=== PATIENT | female | born 1965 | race African-American/Black ===

== ENCOUNTER 2017-07-18 10:04 | Emergency (ER) | payer OTHER ==
[~2017-07-18] VITALS: Ht 165.1 cm; Wt 60.0 kg
[~2017-07-18 10:04] MED LIST: GLUCTAB PO; LOVA10TA PO
[2017-07-18 10:05] VITALS: BP 148/79; PULSE 83; RESP 18; TEMP 98.7; O2SAT 100
[2017-07-18] MEDS ORDERED: SODIUM CHLOR 0.9% 1000 ML INJ 1,000 ML IV SCH (10:26)
[2017-07-18] MEDS ORDERED: MORPHINE SULFATE 4 MG/ML INJ IV PUSH ONE (10:30)
[2017-07-18] MEDS ORDERED: ONDANSETRON HCL 4 MG/2 ML VIAL IVP ONE (10:30)
[2017-07-18] MEDS ORDERED: SODIUM CHLORIDE 0.9% FLUSH 10 ML FLUSH IV FLUSH PRN (10:30)
--- NOTE | 2017-07-18 10:32 | PD ---
HPI Chief Complaint: Abdominal Pain Time Seen by Provider: 10:21 Travel History International Travel<30 days: No Contact w/Intl Traveler<30days: No Traveled to known affect area: No History of Present Illness HPI Patient is a 52-year-old female who presents to emergency room with complaints of abdominal pain. Patient reports that she has been having lower abdominal pain for the past 2 days. Reports that she has been feeling nauseous and has had diarrhea with her symptoms. Reports that she has noticed streaks of bright red blood with her bowel movements. Patient denies any sick contacts, denies any recent travels or trips. Patient denies any fevers or chills. Patient reports only history of tubal ligation for past surgical history. Patient reports that she is type II diabetic but currently is not taking any medications. Patient also reports that she has been menopausal for the past year and has not had a period. Patient denies any dysuria, urinary urgency or frequency. PFSH Past Medical History Diabetes: Yes Patient Takes Glucophage: No (takes nothing) Tetanus Vaccination: < 5 Years ?: Not LMP: 07/16/17 Menopausal: Yes Tubal Ligation: Yes Past Surgical History Gynecologic Surgery: Yes (tubal ligation) Social History Alcohol Use: No Tobacco Use: No Substance Use: No Allergies-Medications (Allergen,Severity, Reaction): Coded Allergies: No Known Allergies (Unverified Adverse Reaction, Unknown, 07/18/17) Reported Meds & Prescriptions Reported Meds & Active Scripts Active No Active Prescriptions or Reported Medications Review of Systems General / Constitutional: Positive: Chills, No: Fever Eyes: No: Visual changes HENT: No: Headaches Cardiovascular: No: Chest Pain or Discomfort Respiratory: No: Shortness of Breath Gastrointestinal: Positive: Nausea, Diarrhea, Abdominal Pain, No: Vomiting, Constipation Genitourinary: No: Urgency, Frequency, Dysuria, Pelvic Pain, Flank Pain, Discharge, Vaginal Bleeding Musculoskeletal: No: Pain Skin: No Rash Neurologic: No: Weakness Psychiatric: No: Depression Endocrine: No: Polydipsia Hematologic/Lymphatic: No: Easy Bruising Physical Exam Narrative GENERAL: moderate distress SKIN: Focused skin assessment warm/dry. HEAD: Atraumatic. Normocephalic. EYES: Pupils equal and round. No scleral icterus. No injection or drainage. ENT: No nasal bleeding or discharge. Mucous membranes pink and moist. NECK: Trachea midline. No JVD. CARDIOVASCULAR: Regular rate and rhythm. No murmur appreciated. RESPIRATORY: No accessory muscle use. Clear to auscultation. Breath sounds equal bilaterally. GASTROINTESTINAL: Abdomen soft, increased tenderness no lower abdomen, nondistended. Hepatic and splenic margins not palpable. MUSCULOSKELETAL: No obvious deformities. No clubbing. No cyanosis. No edema. NEUROLOGICAL: Awake and alert. No obvious cranial nerve deficits. Motor grossly within normal limits. Normal speech. PSYCHIATRIC: Appropriate mood and affect; insight and judgment normal. Data Data Last Documented VS Vital Signs Date Time Temp Pulse Resp B/P (MAP) Pulse Ox O2 Delivery O2 Flow Rate FiO2 07/18/17 12:04 69 18 138/71 (93) 99 Room Air 07/18/17 10:05 98.7 Orders Orders Complete Blood Count With Diff (07/18/17 10:26) Comprehensive Metabolic Panel (07/18/17 10:26) Prothrombin Time / Inr (Pt) (07/18/17 10:26) Act Partial Throm Time (Ptt) (07/18/17 10:26) Urinalysis - C+S If Indicated (07/18/17 10:26) Ct Abd/Pel W Iv Contrast(Rout) (07/18/17 10:26) Iv Access Insert/Monitor (07/18/17 10:26) Ecg Monitoring (07/18/17 10:26) Oximetry (07/18/17 10:26) NPO (07/18/17 10:26) Morphine Inj (Morphine Inj) (07/18/17 10:30) Ondansetron Inj (Zofran Inj) (07/18/17 10:30) Sodium Chlor 0.9% 1000 Ml Inj (Ns 1000 M (07/18/17 10:26) Sodium Chloride 0.9% Flush (Ns Flush) (07/18/17 10:30) Ed Urine Pregnancytest Poc (07/18/17 10:26) Oral Contrast - Adult (07/18/17 11:41) Diatrizoate Liq ( Gastroview Liq) (07/18/17 12:06) Iohexol 350 Inj (Omnipaque 350 Inj) (07/18/17 13:22) Labs Laboratory Tests Test 07/18/17 10:30 07/18/17 10:40 Urine Color YELLOW Urine Turbidity HAZY Urine pH 6.5 Urine Specific [place] 1.023 Urine Protein TRACE mg/dL Urine Glucose (UA) NEG mg/dL Urine Ketones NEG mg/dL Urine Occult Blood TRACE Urine Nitrite NEG Urine Bilirubin NEG Urine Urobilinogen LESS THAN 2.0 MG/DL Urine Leukocyte Esterase NEG Urine RBC 4 /hpf Urine WBC 1 /hpf Urine Squamous Epithelial Cells 1 /hpf Urine Bacteria FEW /hpf Urine Mucus FEW /lpf Microscopic Urinalysis Comment CULT NOT INDICATED White Blood Count 7.0 TH/MM3 Red Blood Count 4.37 MIL/MM3 Hemoglobin 12.5 GM/DL Hematocrit 37.5 % Mean Corpuscular Volume 85.7 FL Mean Corpuscular Hemoglobin 28.5 PG Mean Corpuscular Hemoglobin Concent 33.3 % Red Cell Distribution Width 14.3 % Platelet Count 289 TH/MM3 Mean Platelet Volume 7.7 FL Neutrophils (%) (Auto) 54.5 % Lymphocytes (%) (Auto) 35.5 % Monocytes (%) (Auto) 8.3 % Eosinophils (%) (Auto) 1.3 % Basophils (%) (Auto) 0.4 % Neutrophils # (Auto) 3.8 TH/MM3 Lymphocytes # (Auto) 2.5 TH/MM3 Monocytes # (Auto) 0.6 TH/MM3 Eosinophils # (Auto) 0.1 TH/MM3 Basophils # (Auto) 0.0 TH/MM3 CBC Comment DIFF FINAL Differential Comment Prothrombin Time 11.2 SEC Prothromb Time International Ratio 1.0 RATIO Activated Partial Thromboplast Time 25.8 SEC Blood Urea Nitrogen 10 MG/DL Creatinine 0.80 MG/DL Random Glucose 111 MG/DL Total Protein 8.7 GM/DL Albumin 4.1 GM/DL Calcium Level 9.5 MG/DL Alkaline Phosphatase 65 U/L Aspartate Amino Transf (AST/SGOT) 26 U/L Alanine Aminotransferase (ALT/SGPT) 26 U/L Total Bilirubin 0.3 MG/DL Sodium Level 139 MEQ/L Potassium Level 3.5 MEQ/L Chloride Level 104 MEQ/L Carbon Dioxide Level 28.3 MEQ/L Anion Gap 7 MEQ/L Estimat Glomerular Filtration Rate 92 ML/MIN MDM Medical Decision Making Medical Screen Exam Complete: Yes Emergency Medical Condition: Yes Medical Record Reviewed: Yes Interpretation(s) Vital Signs Date Time Temp Pulse Resp B/P (MAP) Pulse Ox O2 Delivery O2 Flow Rate FiO2 07/18/17 10:19 18 07/18/17 10:05 98.7 83 18 148/79 (102) 100 Room Air Differential Diagnosis Gastritis, gastroenteritis, diverticulitis, electrolyte abnormality Narrative Course Patient is a 52-year-old female who presents to emergency room with complaints of abdominal pain which has been ongoing for the past 2 days. During the course of the patients emergency department visit, the patients history, examination, and differential diagnosis were reviewed with the patient. The patient was placed on a cardiac specialist with oximetry and frequent blood pressure monitoring. The patient had 20 gauge IV access obtained and blood work sent for analysis. The patient was initially provided IV morphine for pain relief, IVF and antiemetics The patients laboratory studies were reviewed and remarkable for WBC 7.0, hemoglobin 12.5, hematocrit 37.5, platelets 289, sodium 139, potassium 3.5, chloride 104, carbon dioxide 28.3, BUN 10, creatinine 0.80, glucose 111, LFTs: WNL; UA remarkable for few mucous, few bacteria, 4 red blood cells, 1 white blood cells, negative leuk esterase, negative ketones, negative nitrites Radiology studies were reviewed and remarkable for: CONCLUSION of CT of abdomen and pelvis with IV and oral contrast 1. Multiple small sided low-attenuation lesions in the liver which are too small to characterize and are nonspecific. These may represent small cysts or cavernous hemangiomas. 2. Unremarkable bowel gas pattern with no inflammatory change or obstruction. 3. Small renal cysts. Patient reports that she is feeling much better at this time. I reviewed all labs and all studies with patient in detail as well as all incidental findings. She will follow-up with her primary care doctor as well as her sales coach and will return to the emergency room as needed. Abdomen is soft, nontender, nondistended, no peritoneal signs at discharge. Patient thankful for care Diagnosis Primary Impression: Abdominal pain Additional Impressions: Lesion of liver Renal cyst Patient Instructions: General Instructions Additional Instructions: Please provide patient with a copy of their lab work and studies at discharge* * Please follow up with your primary care doctor in 2-3 days Return to the ER if symptoms worsen or progress Return to the ER as needed Please bring a copy of your studies to your doctor's office for follow up on all incidental findings Please follow up with your sales coach Scripts No Active Prescriptions or Reported Meds Disposition: 01 DISCHARGE HOME Condition: Stable Marian Portillo DO Jul 18, 2017 10:32
[2017-07-18 10:45] VITALS: RESP 20; O2SAT 99
[2017-07-18 11:01] VITALS: BP 126/69; PULSE 79; RESP 18; O2SAT 100
[2017-07-18 11:03] LABS: AUTOMATED NEUTROPHIL # 3.8 TH/MM3 (1.8-7.7); BASOPHIL % 0.4 % (0.0-2.0); EOSINOPHIL # 0.1 TH/MM3 (0-0.4); EOSINOPHIL % 1.3 % (0.0-4.0); HEMATOCRIT 37.5 % (35.0-46.0); HEMO FLAGS DIFF FINAL; LYMPH % 35.5 % (9.0-44.0); LYMPHOCYTE # 2.5 TH/MM3 (1.0-4.8); MEAN CELL VOLUME 85.7 FL (80.0-100.0); MEAN CORPUSCULAR HEMOGLOBIN 28.5 PG (27.0-34.0); MEAN CORPUSCULAR HGB CONC 33.3 % (32.0-36.0); MONO % 8.3 % (0.0-8.0); NEUT % 54.5 % (16.0-70.0); PLATELET COUNT 289 TH/MM3 (150-450); RED BLOOD COUNT 4.37 MIL/MM3 (4.00-5.30); RED CELL DISTRIBUTION WIDTH 14.3 % (11.6-17.2)
[2017-07-18 11:13] LABS: APTT (PATIENT) 25.8 SEC (24.3-30.1); PROTHROMBIN TIME - PATIENT 11.2 SEC (9.8-11.6)
[2017-07-18 11:14] LABS: BACTERIA, URINE FEW /hpf; BLOOD, URINE TRACE (NEG); COMMENT (UR) CULT NOT INDICATED; CULTURE IF INDICATED CULT NOT INDICATED; GLUCOSE,URINE NEG (NEG); KETONE, URINE NEG (NEG); MUCUS URINE FEW /lpf (OCC); NITRITE,URINE NEG (NEG); PH, URINE 6.5 (5.0-8.5); SQUAMOUS EPITHELIAL CELL URINE 1 /hpf (0-5); URINE COLOR YELLOW (YELLW/STRAW)
[2017-07-18 11:22] LABS: ANION GAP 7 MEQ/L (5-15); AST (GOT) 26 U/L (15-37); BICARBONATE 28.3 MEQ/L (21.0-32.0); BLOOD UREA NITROGEN 10 MG/DL (7-18); CHLORIDE 104 MEQ/L (98-107); GLOMERULAR FILTRATION RATE 92 ML/MIN (>89); POTASSIUM 3.5 MEQ/L (3.5-5.1); SODIUM (NA) 139 MEQ/L (136-145)
[2017-07-18 11:23] LABS: ALT (GPT) 26 U/L (10-53)
[2017-07-18 11:25] LABS: ALKALINE PHOSPHATASE 65 U/L (45-117); TOTAL BILIRUBIN ADULT 0.3 MG/DL (0.2-1.0)
[2017-07-18 12:04] VITALS: BP 138/71; PULSE 69; RESP 18; O2SAT 99
[2017-07-18] MEDS ORDERED: DIATRIZOATE MEGLUM/DIATRIZOATE SOD 9 ML CUP ONE (12:06)
[2017-07-18] MEDS ORDERED: IOHEXOL 350 MG/ML 10 ML VIAL (for RAD DIAG) IVCONTRAST ONE (13:22)
--- NOTE | 2017-07-18 14:10 | RADRPT ---
EXAM DATE/TIME: 07/18/2017 13:18 [facility] COMPARISON: No previous studies available for comparison. INDICATIONS : Lower abdominal pain for 2 days IV CONTRAST: 85 cc Omnipaque 350 (iohexol) IV ORAL CONTRAST: Partial prescribed oral contrast ingested. RADIATION DOSE: 4.87 CTDIvol (mGy) MEDICAL HISTORY : Diabetes mellitus type 2. SURGICAL HISTORY : Tubal ligation. ENCOUNTER: Initial ACUITY: 2 days PAIN SCALE: 5/10 LOCATION: lower quadrant TECHNIQUE: Volumetric scanning of the abdomen and pelvis was performed. Using automated exposure control and ad justment of the mA and/or kV according to patient size, radiation dose was kept as low as reasonably achievable to obtain optimal diagnostic quality images. DICOM format image data is available electro nically for review and comparison. FINDINGS: LOWER LUNGS: The visualized lower lungs are clear. LIVER: Homogeneous density with several small subtle, scattered low-attenuation lesions noted. These measure less than a centimeter in diameter. There is no ductal dilatation. There is no dilation of the bilia ry tree. No calcified gallstones. SPLEEN: Normal size without lesion. PANCREAS: Within normal limits. KIDNEYS: Normal in size and shape. There is no solid mass, stone or hydronephrosis. There are bilateral benig n renal cysts. ADRENAL GLANDS: Within normal limits. VASCULAR: There is no aortic aneurysm. BOWEL/MESENTERY: The stomach, small bowel, and colon demonstrate no acute abnormality. There is no free intraperitone al air or fluid. ABDOMINAL WALL: Within normal limits. RETROPERITONEUM: There is no lymphadenopathy. BLADDER: No wall thickening or mass. REPRODUCTIVE: Within normal limits. INGUINAL: There is no lymphadenopathy or hernia. MUSCULOSKELETAL: Within normal limits for patient age. CONCLUSION: 1. Multiple small sided low-attenuation lesions in the liver which are too small to characterize and are nonspecific. These may represent small cysts or cavernous hemangiomas. 2. Unremarkable bowel gas pattern with no inflammatory change or obstruction. 3. Small renal cysts. David Rome MD on July 18, 2017 at 14:05 Board Certified Radiologist. This report was verified electronically.
== END 2017-07-18 15:17 | disposition home or self-care (01) ==
LOC: NEPD 10:04
DX: R10.30 Lower abdominal pain, unspecified (principal); N28.1 Cyst of kidney, acquired; K76.89 Other specified diseases of liver; R19.7 Diarrhea, unspecified
CPT/HCPCS: 74177; 80053; 81001; 84703; 85025; 85610; 85730; 96361; 96374; 96375; 99285; J2270; J2405; J7030; Q9963; Q9967

== ENCOUNTER 2017-12-23 01:13 | Emergency (ER) | payer OTHER ==
[~2017-12-23] VITALS: Ht 162.6 cm; Wt 65.0 kg
[2017-12-23 01:21] VITALS: BP 120/69; PULSE 75; RESP 16; TEMP 98.6; O2SAT 99
[2017-12-23] MEDS ORDERED: IBUPROFEN 800 MG TAB PO ONE (02:15)
--- NOTE | 2017-12-23 02:35 | PD ---
HPI Chief Complaint: Pain: Acute or Chronic Time Seen by Provider: 02:02 Travel History International Travel<30 days: No Contact w/Intl Traveler<30days: No Traveled to known affect area: No History of Present Illness HPI Patient is a 52-year-old female presenting to the emergency department for evaluation of left wrist pain. She also reports left neck pain. Symptoms started on Monday. There is no preceding injury or trauma. 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 She denies any other complaints. She reports her pain is a 2 out of 10, she currently denies any pain and states it comes and goes. Symptom onset was gradual, symptoms are mild in nature. There are no alleviating factors, pain is exacerbated with movement. Patient has not taken any medications to alleviate her pain. [facility] Past Medical History Diabetes: Yes (DMII) Patient Takes Glucophage: No ?: Not Menopausal: Yes Tubal Ligation: Yes Past Surgical History Gynecologic Surgery: Yes (tubal ligation) Social History Alcohol Use: No Tobacco Use: No Substance Use: No Allergies-Medications (Allergen,Severity, Reaction): Coded Allergies: No Known Allergies (Unverified Adverse Reaction, Unknown, 12/23/17) Reported Meds & Prescriptions Reported Meds & Active Scripts Active No Active Prescriptions or Reported Medications Review of Systems Except as stated in HPI: all other systems reviewed are Neg Musculoskeletal: Positive: Myalgias Physical Exam Narrative GENERAL: Well-developed, well-nourished, alert -Citizen Of [place] female. Presenting in no acute distress. SKIN: Warm and dry. HEAD: Atraumatic. Normocephalic. EYES: Pupils equal and round. No scleral icterus. No injection or drainage. ENT: No nasal bleeding or discharge. Mucous membranes pink and moist. NECK: Trachea midline. No JVD. CARDIOVASCULAR: Regular rate and rhythm. RESPIRATORY: No accessory muscle use. Clear to auscultation. Breath sounds equal bilaterally. GASTROINTESTINAL: Abdomen soft, non-tender, nondistended. Hepatic and splenic margins not palpable. MUSCULOSKELETAL: Extremities without clubbing, cyanosis, or edema. No obvious deformities. NEUROLOGICAL: Awake and alert. No obvious cranial nerve deficits. Motor grossly within normal limits. Five out of 5 muscle strength in the arms and legs. Normal speech. PSYCHIATRIC: Appropriate mood and affect; insight and judgment normal. Data Data Last Documented VS Vital Signs Date Time Temp Pulse Resp B/P (MAP) Pulse Ox O2 Delivery O2 Flow Rate FiO2 12/23/17 01:21 98.6 75 16 120/69 (86) 99 Room Air Orders Orders Ibuprofen (Motrin) (12/23/17 02:15) MDM Medical Decision Making Medical Screen Exam Complete: Yes Emergency Medical Condition: Yes Interpretation(s) Vital Signs Date Time Temp Pulse Resp B/P (MAP) Pulse Ox O2 Delivery O2 Flow Rate FiO2 12/23/17 01:21 98.6 75 16 120/69 (86) 99 Room Air Differential Diagnosis Sprain versus strain versus radiculopathy versus other Narrative Course Patient is a 52-year-old well-appearing female presenting to emergency department for evaluation of left wrist pain. Exam is unremarkable, there was no injury or trauma. Patient will be given ibuprofen. She is encouraged to treat symptoms conservatively at this time. She does have an appointment with her doctor on Monday. She was encouraged to keep that appointment. She was also encouraged to try to get more sleep when possible. She is encouraged return to emergency department for any new or worsening symptoms. Patient stable for discharge. Diagnosis Primary Impression: Wrist pain Qualified Codes: M25.532 - Pain in left wrist Referrals: Primary Care Physician 3 days Patient Instructions: General Instructions Departure Forms: Tests/Procedures, Work Release Enter return to work date: Dec 24, 2017 Additional Instructions: Take [id number] ibuprofen or acetaminophen as needed and as directed for pain Return to emergency department for any new or worsening symptoms Follow-up with your primary doctor on Monday as scheduled Med/Other Pt SpecificInfo: No Change to Meds Scripts No Active Prescriptions or Reported Meds Disposition: 01 DISCHARGE HOME Condition: Stable Felipe,Mariana SINGH Dec 23, 2017 02:35
== END 2017-12-23 02:57 | disposition home or self-care (01) ==
LOC: NEPD 01:13
DX: M25.532 Pain in left wrist (principal); M54.2 Cervicalgia; E11.9 Type 2 diabetes mellitus without complications
CPT/HCPCS: 99282